=== PATIENT | male | born 1960 | race Caucasian/White ===

== ENCOUNTER 2019-06-13 09:25 | Emergency (ER) | payer SELFPAY ==
[2019-06-13 10:11] VITALS: BP 172/100
--- NOTE | 2019-06-13 10:40 | UC ---
Back Pain HPI - HPI Summary HPI Summary: 58-year-old male comes in with a chief complaint of low back pain. Started 2 days ago in the evening. It's in the right lower back. Denies any abdominal pain. Urine has been slightly darker but no change in ability to urinate. Denies any testicular pain. No fevers or chills. Pain is better with laying down. Worse with standing up. Right now it's about a 2-3 out of 10. Yesterday it was severe. Patient has had low back pain on and off for months in the lower back. Patient does not recall pain being this bad in the past. Does not radiate down the leg. No weakness or numbness. Since the pain started patient has not had an appetite and has not been eating. He does have some GERD symptoms occasionally he takes Tums for the GERD. Has not taken anything for the pain. Did have his appendix out years ago. Reports for loose stools yesterday. Occasionally there is some dark in the stools. [facility]. Because of blood in stool in the past it has been recommended that he has a colonoscopy however, he could not afford it. - History of Current Complaint Chief Complaint: UCBackPain Stated Complaint: LOWER RT BACK PAIN Time Seen by Provider: 06/13/19 10:07 Pain Intensity: 2 - Allergies/Home Medications Allergies/Adverse Reactions: Allergies Allergy/AdvReac Type Severity Reaction Status Date / Time No Known Allergies Allergy Verified 06/13/19 10:11 Home Medications: Home Medications Omeprazole 20 mg PO BID #30 capsule. 06/13/19 [Rx] PMH/Surg Hx/FS Hx/Imm Hx Previously Healthy: Yes GI/ History: Gastroesophageal Reflux - Surgical History Surgical History: Yes Surgery Procedure, Year, and Place: appy at 13 yrs - Family History Known Family History: Positive: Non-Contributory - Social History Alcohol Use: Daily Substance Use Type: Marijuana Substance Use Comment - Amount & Last Used: daily Smoking Status (MU): Never Smoked Tobacco Review of Systems All Other Systems Reviewed And Are Negative: Yes Constitutional: Positive: Negative Skin: Positive: Negative Eyes: Positive: Negative ENT: Positive: Negative Respiratory: Positive: Negative Cardiovascular: Positive: Negative Gastrointestinal: Positive: Other - SEE HPI Genitourinary: Positive: Other - SEE HPI Motor: Positive: Negative Neurovascular: Positive: Negative Musculoskeletal: Positive: Other: - SEE HPI Neurological/Mental Status: Positive: Negative Psychological: Positive: Negative Is Patient Immunocompromised?: No Physical Exam Triage Information Reviewed: Yes Appearance: Well-Appearing, No Pain Distress, Well-Nourished Vital Signs: Initial Vital Signs Temp 98.0 F 06/13/19 10:04 Pulse 54 06/13/19 10:04 Resp 18 06/13/19 10:04 BP 172/100 06/13/19 10:04 Pulse Ox 98 06/13/19 10:04 Vital Signs Reviewed: Yes Eye Exam: Normal Eyes: Positive: Conjunctiva Clear Neck: Positive: Supple Respiratory: Positive: Lungs clear, Normal breath sounds, No respiratory distress Abdomen Description: Positive: Nontender, Soft, CVA Tenderness (R) Bowel Sounds: Positive: Present Musculoskeletal: Positive: Strength Intact, ROM Intact, Other: - Low back is nontender to palpation. Patient localizes the pain in the right lower back down into the right SI joint region. Legs have full range of motion full- strength normal sensation. Strength 5 out of 5 in the lower extremities. Neurological: Positive: Alert, Muscle Tone Normal Psychological: Positive: Age Appropriate Behavior Skin Exam: Normal - No shingles rash apparent at this time Back Pain Course/Dx - Course Course Of Treatment: I discussed the urine results with the patient. No blood or leukocytes seen in the urine. The patient has no abdominal pain. We discussed the high blood pressure reading. Patient is not on any antihypertensive medication at this time. [facility] and [facility] is [facility] on June 17, 2019. We discussed CT imaging of the abdomen and pelvis for further evaluation of any pathology today. Patient declined having the CT done today. CBC, CMP and lipase are pending. Patient will take acetaminophen as needed for pain. Because patient has had decreased appetite and reports having had some dark stools in the past restarting omeprazole 20 mg by mouth twice a day. Discussed with the patient that if his pain did not improve or got worse or had any abdominal pain fevers chills felt ill or like Passing out he needed Further evaluation right away in the emergency department right away. - Differential Dx/Diagnosis Provider Diagnosis: Low back pain, Right flank pain, Elevated blood pressure reading Discharge ED - Sign-Out/Discharge Documenting (check all that apply): Patient Departure All imaging exams completed and their final reports reviewed: No Studies - Discharge Plan Condition: Stable Disposition: HOME Prescriptions: Omeprazole 20 mg PO BID #30 capsule. Patient Education Materials: Gastroesophageal Reflux Disease (ED), Acute Low Back Pain (ED), Hypertension (ED), Flank Pain (ED) Referrals: [facility] [place] [facility] [Outside] Additional Instructions: FOLLOW UP WITH YOUR [facility] DOCTOR ON 06/17/19 SCHEDULED. TAKE TYLENOL (ACETAMINOPHEN) NEEDED DIRECTED FOR PAIN. GO TO THE EMERGENCY DEPARTMENT IF NOT IMPROVING OR WORSE; PAIN, FEVER, ABDOMINAL PAIN, YOU FEEL ILL, YOU FEEL LIKE PASSING OUT OR ANY QUESTIONS OR CONCERNS. - Billing Disposition and Condition Condition: STABLE Disposition: Home
[2019-06-13 14:35] LABS: ABS Eosinophils 0.1 10^3/ul (0-0.6); ABS Lymphocytes 1.9 10^3/ul (1.0-4.8); ABS Monocytes 0.4 10^3/ul (0-0.8); ABS Neutrophils 4.9 10^3/ul (1.5-7.7); Eosinophil % 1.3 %; Hematocrit 46 % (42-52); Hemoglobin 15.6 g/dL (14.0-18.0); Lymphocyte % 25.5 %; Mean Corpuscular HGB Conc 34 g/dL (31-36); Mean Corpuscular Hemoglobin 32 pg (27-31); Mean Corpuscular Volume 93 fL (80-94); Mean Platelet Volume 8.7 fL (7.4-10.4); Platelet Count 235 10^3/uL (150-450); Red Blood Count 4.89 10^6 /uL (4.18-5.48); Red Cell Distribution Width 14 % (10-15); White Blood Count 7.3 10^3/uL (3.5-10.8)
[2019-06-13 14:40] LABS: Albumin 4.5 g/dL (3.2-5.2); Calcium 9.2 mg/dL (8.6-10.3); Potassium 4.2 mmol/L (3.5-5.0); Total Bilirubin 0.6 mg/dL (0.2-1.0)
[2019-06-13 14:47] LABS: Albumin/Globulin Ratio 1.6 (1-3); BUN/Creatinine Ratio 15.3 (8-20); EGFR African American 94.4 (>60); Globulin 2.8 g/dL (2-4); Total Protein 7.3 g/dL (6.4-8.9)
--- NOTE | 2019-06-14 08:18 | UC ---
- Progress Note Progress Note: Please call patient to advise him that he has a normal blood count, normal chemistries. normal pancreatic enzymes and liver function. He was started on omeprazole for abdominal pain and advised to follow up with his PMD. Course/Dx - Diagnoses Provider Diagnoses: Low back pain, Right flank pain, Elevated blood pressure reading Discharge ED - Sign-Out/Discharge Documenting (check all that apply): Post-Discharge Follow Up All imaging exams completed and their final reports reviewed: No Studies - Discharge Plan Condition: Stable Disposition: HOME Prescriptions: Omeprazole 20 mg PO BID #30 capsule. Patient Education Materials: Gastroesophageal Reflux Disease (ED), Acute Low Back Pain (ED), Hypertension (ED), Flank Pain (ED) Referrals: [facility] [Outside] Additional Instructions: FOLLOW UP WITH YOUR [facility] DOCTOR ON 06/17/19 SCHEDULED. TAKE TYLENOL (ACETAMINOPHEN) NEEDED DIRECTED FOR PAIN. GO TO THE EMERGENCY DEPARTMENT IF NOT IMPROVING OR WORSE; PAIN, FEVER, ABDOMINAL PAIN, YOU FEEL ILL, YOU FEEL LIKE PASSING OUT OR ANY QUESTIONS OR CONCERNS. - Billing Disposition and Condition Condition: STABLE Disposition: Home
== END 2019-06-13 11:11 | disposition home or self-care (01) ==
LOC: UCCORT 09:25
DX: M54.5 Low back pain (principal); R03.0 Elevated blood-pressure reading, without diagnosis of hypertension; K21.9 Gastro-esophageal reflux disease without esophagitis; Z79.899 Other long term (current) drug therapy
CPT/HCPCS: 36415; 80053; 81003; 83690; 85025; 99212; G0463

== ENCOUNTER 2019-06-15 13:28 | Emergency (ER) | payer OTHER ==
[2019-06-15] MEDS ORDERED: NS 0.9% 1000 ML** 1,000 ML IV ONE (13:45)
[2019-06-15] MEDS ORDERED: Ketorolac INJ* 30 MG/ML 1 ML VIAL IV PUSH ONE (13:49)
[2019-06-15] MEDS ORDERED: Ondansetron INJ* 2 MG/ML VIAL IV ONE (13:51)
--- NOTE | 2019-06-15 13:57 | ED ---
Back Pain - HPI Summary HPI Summary: Pt. is a 58 y.o male who presents to the ER who presents to the ER for ongoing right lower back pain x 3-4 days. Pain occasionally radiates into right leg. Denies numbness, tingling or weakness in legs. Pt. denies chest pain, SOB, vomiting, diarrhea, fever, cough, urinary sxs. Pt. denies any injury or heavy lifting. Pt. seen at two days ago and had negative blood work and u/a. Denies past medical hx. Sxs are moderate in severity. No current modifying factors. - History of Current Complaint Stated Complaint: BACK PAIN PER EMS Time Seen by Provider: 06/15/19 13:31 Hx Obtained From: Patient Pain Intensity: 10 - Allergies/Home Medications Allergies/Adverse Reactions: Allergies Allergy/AdvReac Type Severity Reaction Status Date / Time No Known Allergies Allergy Verified 06/13/19 10:11 Home Medications: Home Medications Omeprazole 20 mg PO BID #30 capsule. 06/13/19 [Rx] Hydrocodone/Acetaminophen [Hydrocodone-Acetamin 5-325 mg] 1 each PO Q6H #12 tablet MDD 4 06/15/19 [Rx] methylPREDNISolone [Medrol Dosepak 4 MG*] 0 mg PO .SEE BLANCA INSTRUCTION #1 tab [Rx] PMH/Surg Hx/FS Hx/Imm Hx Previously Healthy: Yes Endocrine/Hematology History: Denies: Hx Diabetes, Hx Thyroid Disease Cardiovascular History: Denies: Hx Hypertension Respiratory History: Denies: Hx Asthma, Hx Chronic Obstructive Pulmonary Disease (COPD) GI History: Denies: Hx Ulcer - Surgical History Surgery Procedure, Year, and Place: appy at 13 yrs Infectious Disease History: No Infectious Disease History: Denies: Hx Hepatitis, Hx Human Immunodeficiency Virus (HIV), Traveled Outside the [place] in Last 30 Days - Family History Known Family History: Positive: Non-Contributory - Social History Alcohol Use: Daily Substance Use Type: Reports: Marijuana Substance Use Comment - Amount & Last Used: daily Smoking Status (MU): Never Smoked Tobacco Review of Systems Constitutional: Negative Negative: Fever, Chills Cardiovascular: Negative Respiratory: Negative Gastrointestinal: Negative Genitourinary: Negative Positive: Other - right sided back pain Negative: Weakness, Paresthesia, Numbness All Other Systems Reviewed And Are Negative: Yes Physical Exam Triage Information Reviewed: Yes Vital Signs On Initial Exam: Initial Vitals Temp Pulse Resp BP Pulse Ox 98.3 F 61 16 152/94 98 06/15/19 13:35 06/15/19 13:35 06/15/19 13:35 06/15/19 13:35 06/15/19 13:35 Vital Signs Reviewed: Yes Appearance: Positive: Pain Distress - Pt. lying in bed on right side. Appears uncomfortable but nontoxic. Skin: Positive: Warm, Dry Head/Face: Positive: Normal Head/Face Inspection Eyes: Positive: Normal, EOMI Neck: Positive: Supple Respiratory/Lung Sounds: Positive: Clear to Auscultation, Breath Sounds Present Cardiovascular: Positive: Normal, RRR Abdomen Description: Positive: Nontender, Soft, CVA Tenderness (R) - minimal, Other: - Rectal exam performed with aid, Lemuel. Normal sensation. Slightly decreased tone.. Negative: CVA Tenderness (L) Musculoskeletal: Positive: Normal, Strength/ROM Intact, Other - 5/5 strength in bilateral lower extremeties with flexion and dorsiflexion. No sensory deficits. Neurovascularly intact. Negative straight leg. No midline lumbar tenderness. Pain over right SI joint. Neurological: Positive: Normal, CN Intact II-III Psychiatric: Positive: Affect/Mood Appropriate Procedures - Sedation Patient Received Moderate/Deep Sedation with Procedure: No Diagnostics - Vital Signs Vital Signs Temp Pulse Resp BP Pulse Ox 06/15/19 13:35 98.3 F 61 16 152/94 98 - Laboratory Lab Statement: Any lab studies that have been ordered have been reviewed, and results considered in the medical decision making process. Back Pain Course/Dx - Course Course Of Treatment: Pt. with right sided back pain. Afebrile. BP elevated. Notes occassional pain/numbness into right leg. Pt. also notes occassional numbness to tip of penis but currently denies. No loss of bowel or bladder function. Will recheck labs and obtain ct to evaluate spine as well r/o urolithiasis. Pt. given toradol, decadron and morphine. ECG done at 1347 shows a sinus rhythm of 57bpm, normal axis, no ST elevation. CT per radiology: IMPRESSION: 1. NO HYDROURETERONEPHROSIS OR NEPHROLITHIASIS. 2. VARYING DEGREES OF MULTILEVEL SPONDYLOSIS. SEVERE SPINAL CANAL STENOSIS IS SUSPECTED. AT L4-L5. AT LEAST MODERATE TO SEVERE BILATERAL NEURAL FORAMINAL STENOSIS IS SEEN L4-L5. AND L5-S1. THIS WOULD BE BETTER CHARACTERIZED BY LUMBAR SPINE MRI. 3. CORONARY ARTERY DISEASE. 4. HEPATIC STEATOSIS. 5. FAT-CONTAINING PERIUMBILICAL AND BILATERAL INTERNAL HERNIAS. Unable to obtain labs after multiple sticks. Pt. had labs and u/a two days at and they are unremarkable. Post void bladder scan is 0. On re-exam pt. notes he initially had mild improvement of pain after morphine, toradol and decadron but notes his pain is again a 10/10. He notes pain is improved if he turns on his side and puts knees to chest. Pt. has no neuro deficits or signs of cauda equina at this time. Will give a dose of valium for pain and lidocaine patch. Pt. will be signed out to Samir Sandoval PAC for pain control and disposition. Feel pain has improved and pt. is ambulatory he can be dc home to f.u with pcp and neurosx. Lortab and pred rx. STONE CHIMNEY MASON reviewed. Discussed return precautions. BP has also been elevated, will have pt. f.u with pcp for further testing and treatment of BP. - Diagnoses Differential Diagnosis/HQI/PQRI: Positive: Arthritis, Herniated Disc, Renal Colic, Strain, Sprain Provider Diagnoses: Back pain, Spinal stenosis at L4-L5 level, Elevated blood pressure reading - Critical Care Time Critical Care Statement: Critical care time is provided exclusive of any time spent performing procedures. Discharge ED - Sign-Out/Discharge Documenting (check all that apply): Sign-Out Patient Signing out patient TO: Momo Massey - Discharge Plan Condition: Improved Disposition: HOME Prescriptions: Hydrocodone/Acetaminophen [Hydrocodone-Acetamin 5-325 mg] 1 each PO Q6H #12 tablet MDD 4 methylPREDNISolone [Medrol Dosepak 4 MG*] 0 mg PO .SEE BLANCA INSTRUCTION #1 tab Patient Education Materials: Lumbar Spinal Stenosis (ED), Back Pain (ED) Referrals: Sonia Garvin [Primary Care Provider] - Constantin Kebede MD [Medical Doctor] - Additional Instructions: Please call PCP tomorrow for follow up within 2-3 days and for neurosurgery referral Take medication as directed Avoid heavy lifting Return to ER for increased pain, leg weakness, loss of bowel or bladder function , genital numbness, or if concerned - Billing Disposition and Condition Condition: IMPROVED Disposition: Home
[2019-06-15] MEDS ORDERED: Morphine 4 MG/ML VIAL (1 ml) 4 MG/ML VIAL IV ONE (15:16)
[2019-06-15] MEDS ORDERED: Dexamethasone IV* 4 MG/ML 1 ML (4 MG) IV SLOW PU ONE (15:50)
[2019-06-15] MEDS ORDERED: Lidocaine PATCH 5%* 1 PATCH TRANSDERM ONE ×2 (16:45→16:48)
[2019-06-15] MEDS ORDERED: Diazepam TAB(*) 5 MG PO ONE (16:47)
--- NOTE | 2019-06-15 17:47 | PN ---
Progress Note - Progress Note Date of Service: 06/15/19 Note: Patient signed out to me by Reji PARIKH pending control of patient's pain. After lidocaine patch application patient states pain is improved and he wishes to go home. Vital signs within normal limits. Patient discharged home in stable condition with diagnosis of lumbar stenosis and Rx for hydrocodone and prednisone. Follow-up with neurosurgery recommended.
[2019-06-15 18:02] VITALS: BP 183/110
[2019-06-15] MEDS ORDERED: Lidocaine Patch REMOVE* 1 NOTE MISC SCH ×2 (21:00)
== END 2019-06-15 18:02 | disposition home or self-care (01) ==
LOC: ED 13:28
DX: M54.5 Low back pain (principal); M48.061 Spinal stenosis, lumbar region without neurogenic claudication; R03.0 Elevated blood-pressure reading, without diagnosis of hypertension
CPT/HCPCS: 74176; 93005; 96361; 96374; 96375; 99283; A9270-GY; J1100; J1885; J2270; J2405

== ENCOUNTER 2023-01-09 09:49 | Observation (INO) ==
[~2023-01-09 09:49] MED LIST: Buffered Lidocaine 1% SYRIN 1 ml INTRADERM ONE; Lactated Ringers 1000 ml BAG 1,000 ML IV SCH
[2023-01-09] MEDS ORDERED: ceFAZolin 2 GM in NS PREMIX 2 GM/100 ML BAG IVPB ONE (10:25)
[2023-01-09] MEDS ORDERED: Tranexamic Acid 1 GM/100ML BAG 2,000 MG/200 ML BAG IV ONE (10:25)
[2023-01-09 10:42] LABS: Rapid COVID-19 Molecular Undetected (Undetected)
[2023-01-09] MEDS ORDERED: Naloxone 0.4 mg VIAL 0.4 mg/ml 1 ml VIAL IV PRN (11:54)
[2023-01-09] MEDS ORDERED: Acetaminophen IV 1 GM/100ML 1,000 MG/100 ML BAG IV PRN (11:54)
[2023-01-09] MEDS ORDERED: HYDROmorphone 1 MG/1 ML SYRINGE IV PRN (11:54)
[2023-01-09] MEDS ORDERED: fentaNYL 100 mcg/2 ml 50 MCG/ML VIAL IV PRN (11:54)
[2023-01-09] MEDS ORDERED: Ondansetron 4 mg VIAL 2 MG/ML 2 ml VIAL IV PRN ×2 (11:54→14:28)
[2023-01-09] MEDS ORDERED: fentaNYL 100 mcg/2 ml 50 MCG/ML VIAL ONE (12:03)
[2023-01-09] MEDS ORDERED: Midazolam 2 mg/2 ml VIAL 1 mg/ml 2 ml VIAL (2 mg) ONE (12:04)
[2023-01-09] MEDS ORDERED: Lidocaine 2% PF 5 ML VIAL ONE (12:05)
[2023-01-09] MEDS ORDERED: Propofol 10 MG/ML 20 ML BTL ONE ×3 (12:15→14:47)
[2023-01-09] MEDS ORDERED: ROPIVACAINE 5 MG/ML 30 ML BTL (0.5%) ONE (12:47)
[2023-01-09] MEDS ORDERED: Ondansetron ODT 4 mg TAB 4 MG TAB PO PRN (14:28)
[2023-01-09] MEDS ORDERED: Morphine 2 MG/ML SYRINGE IV PRN (14:28)
[2023-01-09] MEDS ORDERED: Lactulose 30 ml UDC PO PRN (14:28)
[2023-01-09] MEDS ORDERED: Magnesium Hydroxide LIQ 30 ML UDC PO PRN (14:28)
[2023-01-09] MEDS ORDERED: Ondansetron 4 mg VIAL 2 MG/ML 2 ml VIAL ONE (14:29)
[2023-01-09] MEDS ORDERED: Dexamethasone IV 4 MG/ML VIAL 1 ml VIAL ONE (14:29)
[2023-01-09] MEDS ORDERED: Lactated Ringers 1000 ml BAG 1,000 ML IV SCH (15:00)
[2023-01-09] MEDS ORDERED: Acetaminophen IV 1 GM/100ML 1,000 MG/100 ML BAG IV ONE (15:30)
[2023-01-09] MEDS: Magnesium Hydroxide LIQ 30 ML UDC PO SCH (21:38)
[2023-01-09] MEDS: ceFAZolin 1 GM ADVAN 1 GM in NS 0.9% 50 ML 50 ML IVPB SCH (22:18)
[2023-01-10] MEDS: ceFAZolin 1 GM ADVAN 1 GM in NS 0.9% 50 ML 50 ML IVPB SCH ×2 (05:29→14:02)
[2023-01-10 08:58] LABS: Hematocrit 38.3 % (38-53); Hemoglobin 12.6 g/dL (13.2-16.3); Mean Platelet Volume 8.6 fL (7.5-11.2); Platelet Count 213 10^3/uL (150-450)
[2023-01-10] MEDS ORDERED: Vitamin THERAPEUTIC TAB PO SCH (09:00)
[2023-01-10] MEDS ORDERED: Influenza vaccine *QUAD* *2023-24* 0.5 ML SYRINGE IM ONE (09:00)
[2023-01-10] MEDS: Magnesium Hydroxide LIQ 30 ML UDC PO SCH (09:24)
[2023-01-10 09:45] LABS: Calcium 8.5 mg/dL (8.6-10.3); Creatinine, Serum 1.02 mg/dL (0.67-1.17); Potassium 4.3 mmol/L (3.5-5.0); eGFR CKD-EPI 82.1 (>60)
[2023-01-10 15:13] VITALS: BP 141/74
== END 2023-01-10 15:43 | disposition home or self-care (01) ==
LOC: SDS 09:49 → SSU 09:49 → EDSTATUS 01-25 12:30
PROVIDERS: ADMIT Orthopaedic Surgery Adult Reconstructive Orthopaedic Surgery; ATTEND Orthopaedic Surgery Adult Reconstructive Orthopaedic Surgery